=== PATIENT | male | born 1935 | race Caucasian/White ===

== ENCOUNTER 2021-12-12 15:16 | Emergency (ER) | payer MEDICARE ==
[~2021-12-12 15:16] MED LIST: ASPIRIN CHEWABL81 MG PO; FLOMAX 0.4 MG0.4 MG PO; ISOSORBIDE MONO60 MG PO; LIPITOR20 MG PO; LOPRESSOR25 MG PO; NITROQUIK SL0.4 MG SL; NORVASC5 MG PO; PLAVIX75 MG PO; PRILOSEC20 MG PO; PROTONIX 40MG T40 MG PO; SYNTHROID75 MCG PO; ZOLOFT100 MG PO
[2021-12-12 16:25] LABS: BASOPHIL 0.7 % (0-2); EOSINOPHIL 3.1 % (0-7); HCT 35.2 % (42.0-52.0); HGB 11.5 g/dl (13.2-18.0); LYMPHOCYTE 20.3 % (15-48); MCH 27.6 pg (25.0-31.0); MCHC 32.7 g/dL (32.0-36.0); MCV 84.6 fL (78.0-100.0); MONOCYTE 6.4 % (0-12); MPV 11.5 fL (6.0-9.5); NEUTROPHIL 69.1 % (41-80); NRBC 0; PLT 232 K/uL (150-400); RBC 4.16 M/uL (4.70-6.00); RDW 16.5 % (11.5-14.0); WBC 9.1 K/uL (4.0-10.5)
[2021-12-12 16:53] LABS: ALBUMIN 2.8 g/dL (3.4-5.0); BILIRUBIN - TOTAL 0.8 mg/dL (0.2-1.0); BUN/CREAT RATIO (CALC) 11.6 RATIO; CREATININE 1.12 mg/dL (0.67-1.17); GLOBULIN (CALCULATION) 3.7 g/dL; POTASSIUM 3.8 mmol/L (3.5-5.1); TOTAL PROTEIN 6.5 g/dL (6.4-8.2)
[2021-12-12 17:48] LABS: BILIRUBIN NEGATIVE (NEGATIVE); BLOOD NEGATIVE Ery/uL (NEGATIVE); CLARITY CLEAR (CLEAR); COLOR YELLOW (YELLOW); GLUCOSE (U) NORMAL (NORMAL); LEUKOCYTES NEGATIVE Leu/uL (NEGATIVE); NITRITE NEGATIVE (NEGATIVE); PROTEIN NEGATIVE (NEGATIVE); UROBILINOGEN 0.2 mg/dL (0.2-1.0)
== END 2021-12-12 19:08 | disposition home or self-care (01) ==
LOC: FER 15:16
PROVIDERS: Emergency Medicine
DX: R53.1 Weakness (principal); J44.9 Chronic obstructive pulmonary disease, unspecified; Z88.0 Allergy status to penicillin; Z88.2 Allergy status to sulfonamides; Z79.82 Long term (current) use of aspirin; Z79.899 Other long term (current) drug therapy
CPT/HCPCS: 36415; 71046; 80053; 81003; 82553; 84443; 84484; 85025; 93005